=== PATIENT | male | born 1955 | race Caucasian/White ===

== ENCOUNTER → 2017-05-30 | Day surgery (SDC) | payer BC ==
[~2017-05-30] MED LIST: Lactated Ringers 1,000 ML IV SCH; Propofol 200 MG/20 ML SDV IV ONE
[2017-05-30 09:42] VITALS: BP 153/96
--- NOTE | 2017-05-30 13:26 | OR ---
DATE OF OPERATION: 05/30/2017 PREOPERATIVE DIAGNOSIS: ALTERED BOWEL HABITS IN THE FORM OF CONSTIPATION. POSTOPERATIVE DIAGNOSIS: ALTERED BOWEL HABITS IN THE FORM OF CONSTIPATION. SURGEON: Jim Smith MD PROCEDURE: FULL-LENGTH COLONOSCOPY. ANESTHESIA: [employer] due to sleep apnea. COMPLICATIONS: None. SPECIMEN: None. FINDINGS: Normal full-length colonoscopy. RECOMMENDATIONS: Routine colonoscopy every 10 years. INDICATIONS: The patient presented to my office for routine physical, admitted to having significant issues with constipation and he elected to proceed with colonoscopy. DESCRIPTION OF PROCEDURE: The patient was prepped and draped, placed in the left lateral decubitus position. Lubricant Olympus colonoscope was inserted and easily advanced to the cecum. Direct visualization of the ileocecal valve was accomplished. The bowel prep was adequate. Upon withdrawal of the scope throughout the entire length of the colon, I found no signs of any polyps, mass, ulcerations, or bleeding sites. No vascular abnormalities or signs of colitis. There were no signs of any diverticula. The rectal vault was unremarkable. Retroflexion of scope in the rectum showed no anal lesions other than some perianal skin tags. Air was then suctioned. The scope was removed without complication. ESTEPHANIA/HERMINIO /[id number]
== END ==
LOC: CC.SDS 07:50
PROVIDERS: ATTEND Family Medicine
DX: K64.4 Residual hemorrhoidal skin tags (principal); N40.0 Benign prostatic hyperplasia without lower urinary tract symptoms; Z88.1 Allergy status to other antibiotic agents; Z91.09 Other allergy status, other than to drugs and biological substances; Z79.82 Long term (current) use of aspirin; Z79.899 Other long term (current) drug therapy; Z98.890 Other specified postprocedural states; Z72.0 Tobacco use
CPT/HCPCS: 45378; 81001; J2704; J7120